=== PATIENT | female | born 1995 | race Caucasian/White ===

== ENCOUNTER 2017-04-05 16:38 | Inpatient (IN) | payer OTHER ==
[~2017-04-05] VITALS: Ht 170.2 cm; Wt 110.9 kg
[2017-05-28] VITALS (7 sets, daily range): BP systolic 117–141; BP diastolic 56–78; PULSE 75–101; TEMP 97.4
[2017-05-28] MEDS ORDERED: PRENATAL1 TA7 PO (19:58)
[2017-05-28 20:42] LABS: BASO % 0.3 % (0.0-2.0); EOS # 0.1 (0.0-0.7); EOS % 1.2 % (0-4.0); GRAN # 6.4 (1.4-6.5); GRAN % 63.5 % (42.2-75.2); HEMATOCRIT 33.3 % (37.0-47.0); HEMOGLOBIN 11.3 g/dl (12.5-16.0); LYMPH # 2.7 (1.2-3.4); LYMPH % 26.5 % (20.0-51.0); MEAN CELL VOLUME 84 fl (80.0-100.0); MEAN CORPUSCULAR HEMOGLOBIN 28 pg (27.0-31.0); MEAN CORPUSCULAR HGB CONC 34 g/dl (33.0-37.0); MEAN PLATELET VOLUME 12.2 fl (7.4-10.4); MONO # 0.7 (0.1-0.6); MONO % 7.4 % (1.7-9.3); PLATELET COUNT 190 K/mm3 (130-400); RED BLOOD COUNT 3.97 M/mm3 (4.10-5.30); REDCELL DISTRIBUTION WIDTH-CV 14.2 % (11.5-14.5)
[2017-05-29] VITALS (37 sets, daily range): BP systolic 76–150; BP diastolic 38–87; PULSE 18–130; TEMP 97.5–98.8
[2017-05-29 12:43] LABS: BASO % 0.3 % (0.0-2.0); EOS % 0.1 % (0-4.0); GRAN # 10.8 (1.4-6.5); GRAN % 79.3 % (42.2-75.2); LYMPH # 1.7 (1.2-3.4); LYMPH % 12.6 % (20.0-51.0); MEAN CELL VOLUME 85 fl (80.0-100.0); MEAN CORPUSCULAR HGB CONC 34 g/dl (33.0-37.0); MEAN PLATELET VOLUME 12.2 fl (7.4-10.4); MONO % 7.3 % (1.7-9.3); PLATELET COUNT 173 K/mm3 (130-400); RED BLOOD COUNT 3.73 M/mm3 (4.10-5.30); REDCELL DISTRIBUTION WIDTH-CV 14.2 % (11.5-14.5)
[2017-05-29 12:49] LABS: HEMATOCRIT 31.8 % (37.0-47.0); HEMOGLOBIN 10.7 g/dl (12.5-16.0); MEAN CORPUSCULAR HEMOGLOBIN 29 pg (27.0-31.0)
[2017-05-30 04:00] VITALS: BP 109/50; PULSE 89; TEMP 97.6
[2017-05-30 07:11] LABS: HEMATOCRIT 24.3 % (37.0-47.0); HEMOGLOBIN 8.1 g/dl (12.5-16.0)
[2017-05-30 08:00] VITALS: BP 129/68; PULSE 90; TEMP 97.6
[2017-05-30] MEDS ORDERED: PERCOCET 325 MG1 TA2 PO (08:44)
[2017-05-30] MEDS ORDERED: IBU600 MG PO (08:44)
[2017-05-30] MEDS ORDERED: IRON TABLETS325 MG PO (08:45)
[2017-05-30 13:50] VITALS: BP 126/80; PULSE 81; TEMP 97.8
[2017-05-30 20:30] VITALS: BP 113/60; PULSE 85; TEMP 97.9
[2017-05-31 07:35] VITALS: BP 115/68; PULSE 76; TEMP 98.5
== END 2017-05-31 12:40 | disposition home or self-care (01) | DRG 774 ==
LOC: LDR 05-28 06:25 → OB 05-28 19:07 → LDR 05-28 19:07 → OB 05-29 14:20 → EDSTATUS 05-30 06:25 → LDRO 05-30 16:37 → OB 05-31 12:40
PROVIDERS: Obstetrics & Gynecology
PROC: 10E0XZZ Delivery of Products of Conception, External Approach (ICD-10-PCS; principal; 2017-05-29)
PROC: 0HQ9XZZ Repair Perineum Skin, External Approach (ICD-10-PCS; 2017-05-29)
DX: O69.82X0 Labor and delivery complicated by other cord entanglement, without compression, not applicable or unspecified (principal); O72.1 Other immediate postpartum hemorrhage; D62 Acute posthemorrhagic anemia; O71.7 Obstetric hematoma of pelvis; O76 Abnormality in fetal heart rate and rhythm complicating labor and delivery; O99.02 Anemia complicating childbirth; O70.0 First degree perineal laceration during delivery; Z3A.39 39 weeks gestation of pregnancy; Z37.0 Single live birth
CPT/HCPCS: J1200; J2210; J2270; J2400; J2590; J7120

== ENCOUNTER 2021-10-10 06:17 | Inpatient (IN) | payer BC ==
[2021-10-10] VITALS (22 sets, daily range): BP systolic 109–141; BP diastolic 52–98; PULSE 66–99; TEMP 98.2–98.3
[~2021-10-10] VITALS: Ht 170.2 cm; Wt 118.9 kg
[~2021-10-10 06:17] MED LIST: IBU600 MG PO; IRON TABLETS325 MG PO; PERCOCET 325 MG1 TA2 PO; PRENATAL1 TA7 PO
--- NOTE | 2021-10-10 06:30 | NUR ---
PT ARRIVES VIA WHEELCHAIR TO UNIT C/O CONTRACTIONS. Q3 MINUTES PER REPORT. REPORTS HX OF QUICK LABORS. PLACED ON EFM/TOCO. EFM TRACING CATEGORY 1, TOCO TRACING CONTRACTIONS Q4-5 MINUTES APART. MODERATE WITH PALPATION. INITIAL SVE 3-4/70/-2. NO LEAKING OF FLUID, REPORTS POSITIVE MOVEMENT. WILL CONTINUE TO MONITOR.
[2021-10-10] MEDS ORDERED: ZOLOFT 50MG50 MG PO (06:36)
[2021-10-10] MEDS ORDERED: UNISOM25 MG PO (07:02)
--- NOTE | 2021-10-10 09:26 | NUR ---
0926 PT SITTING UP ON SIDE OF BED. UNABLE TO TRACE EFM DUE TO MATERNAL HABITUS AND POSITIONING. ROBERT SWARTZ AT BEDSIDE. LR BOLUS RUNNING, BLOOD PRESSURE CUFF AND PULSE OX IN PLACE. 0933 TEST DOSE ADMINISTERED BY ROBERT SWARTZ. PT TOLERATED WELL. UNABLE TO TRACE EFM DUE TO MATERNAL POSITIONING. VITAL SIGNS STABLE. 0940 PT LYING LEFT LATERAL COMFORTABLY AT THIS TIME. EFM TRACING CATEGORY 1. VITAL SIGNS STABLE. WILL CONTINUE TO MONITOR.
[2021-10-10 10:21] LABS: MEAN CELL VOLUME 86 fl (80.0-100.0); MEAN CORPUSCULAR HEMOGLOBIN 28 pg (27-31); MEAN CORPUSCULAR HGB CONC 33 g/dl (33.0-37.0); MEAN PLATELET VOLUME 12.1 fl (7.4-10.4); PLATELET COUNT 174 K/mm3 (130-400); RED BLOOD COUNT 4.23 M/mm3 (4.10-5.30)
[2021-10-10 10:26] LABS: HEMATOCRIT 36.5 % (37.0-47.0)
--- NOTE | 2021-10-10 10:45 | NUR ---
1045 SVE PT COMPLETE/0 STATION. PREPARING ROOM FOR DELIVERY. 1051 STARTED PUSHING WITH PT. GOOD MATERNAL EFFORT. [address] M[address] DR[address] DELGADO. NOTABLE LARGE HEMATOMA ON RIGHT LABIA. DR. DELGADO BEGINS EVACUATION AND REPAIR OF HEMATOMA AND 2ND DEGREE PERINEAL LACERATION. BLEEDING CONTROLLED. 11[address] DELGADO. PITOCIN BOLUS INFUSING AT THIS TIME PER PROTOCOL. FUNDUS FIRM AND AT UMBILICUS. LOCHIA WNL. WILL CONTINUE WITH CARES PER PROTOCOL.
[2021-10-11 03:45] VITALS: BP 114/62; PULSE 67; TEMP 98.2
[2021-10-11 06:58] VITALS: BP 120/72; PULSE 76; TEMP 98.2
--- NOTE | 2021-10-11 09:46 | NUR ---
Initial visit; attempt; Family resting, Senior It Assistant left card offering God's blessings for the of their son and information regarding the availability of spiritual care at our hospital.
[2021-10-11 18:48] VITALS: BP 128/82; PULSE 62; TEMP 97.7
[2021-10-12 05:00] VITALS: BP 126/69; PULSE 69; TEMP 97.7
[2021-10-12 08:19] VITALS: BP 97/62; PULSE 65; TEMP 98.3
--- NOTE | 2021-10-12 12:22 | NUR ---
PATIENT EDUCATED ON DISCHARGE INSTRUCTIONS. SPOUSE PRESENT FOR EDUCATION.
== END 2021-10-12 13:10 | disposition home or self-care (01) | DRG 807 ==
LOC: LDRO 06:17 → LDR 09:53 → OB 20:06
PROVIDERS: ADMIT Obstetrics & Gynecology
PROC: 10E0XZZ Delivery of Products of Conception, External Approach (ICD-10-PCS; principal; 2021-10-10)
PROC: 0KQM0ZZ Repair Perineum Muscle, Open Approach (ICD-10-PCS; 2021-10-10)
PROC: 0UCMXZZ Extirpation of Matter from Vulva, External Approach (ICD-10-PCS; 2021-10-10)
DX: O99.214 Obesity complicating childbirth (principal); Z37.0 Single live birth; O99.344 Other mental disorders complicating childbirth; F41.9 Anxiety disorder, unspecified; O70.1 Second degree perineal laceration during delivery; O71.7 Obstetric hematoma of pelvis; O99.42 Diseases of the circulatory system complicating childbirth; I05.9 Rheumatic mitral valve disease, unspecified; Z3A.37 37 weeks gestation of pregnancy
CPT/HCPCS: J2590; J2795; J7120